=== PATIENT | male | born 1950 | race Caucasian/White ===

== ENCOUNTER → 2017-09-04 | Outpatient (CLI) | payer MEDICARE, OTHER ==
[~2017-09-04] MED LIST: AMI25 PO; ASPI-1441 PO; AUG500 PO; DOCU-202 PO; FISH OIL1 CAP PO; GLUC-135 PO; MULT1CAP41 PO; NIT4 SL; [UNRECOGNIZED DRUG - OTHER] PO
--- NOTE | 2017-09-04 14:34 | RADIOLOGY IMAGING REPORT ---
[place] [facility] [place] Wali [place] : 1950 MR: [id number] V: [id number] EXAM DATE: ORDERING PHYSICIAN: SERVANDO LOWE TECHNOLOGIST: Location: [facility] Patient: Wali Martinez : 1950 Visit/Account:[id number] Date of Sevice: 09/04/2017 MRI Brain without IV contrast Indication: Cognitive decline. Forgetfulness. Comparison: None available Technique: Sagittal T1-weighted, axial FLAIR, T2-weighted T1-weighted, gradient echo, coronal T2-weig hted, axial diffusion weighted and ADC map images were obtained through the brain. IV contrast was n ot administered. Findings: No evidence of mass, mass effect, or midline shift. No acute intracranial hemorrhage or acute territorial infarction. Unremarkable appearance of the corpus callosum. Normal posterior pituitary bright spot noted. No restricted diffusion on the diffusion-weighted images. Prominent multifocal periventricular deep white matter hyperintensities within the saucedo radiata and centrum semiovale seen related to chronic small vessel ischemic changes versus underlying vasculitis or chronic migraines. A demyelinating process is considered less likely with this distribution. Normal flow voids cerebral vasculature. There are no air-fluid levels identified. Nonspecific mild patchy opacification visualized right mas toid air cells. There are also mucous retention cysts of the visualized bilateral maxillary sinuses slightly greater on the right than the left as well as near circumferential mucosal thickening visual ized bilateral maxillary sinuses. The ethmoid air cells appear patent. Bilateral globes are intact. IMPRESSION: 1. Prominent periventricular deep white matter chronic small vessel ischemic changes suggested versu s chronic migraines or underlying vasculitis. 2. No acute intracranial abnormality. Report Dictated By: Marlo Lewis MD at 09/04/2017 2:27 PM Report E-Signed By: Marlo Lewis MD at 09/04/2017 2:31 PM WSN:[id number]
== END ==
LOC: MRI 11:09
PROVIDERS: ATTEND Psychiatry & Neurology Neurology
DX: R90.82 White matter disease, unspecified (principal); I67.82 Cerebral ischemia
CPT/HCPCS: 70551

== ENCOUNTER → 2018-02-17 | Outpatient (CLI) | payer MEDICARE, OTHER ==
--- NOTE | 2018-02-17 16:05 | RADIOLOGY IMAGING REPORT ---
FACILITY: PATIENT NAME: Wali Martinez : 1950 MR: [id number] V: [id number] EXAM DATE: ORDERING PHYSICIAN: CARLA SOTO TECHNOLOGIST: [place] [facility] [place]i [place] : 1950 Visit/Account:[id number] Date of Sevice: 02/17/2018 SOFT TISSUE HEAD NECK HISTORY: Two palpable lumps on left side of neck COMPARISON: None. FINDINGS: Thyroid : Right - Negative. Left - Negative. Largest cervical nodes: Right - none identified Left - the palpable area corresponds to submandibular area, anterior zone II. There is a well- circumscribed benign-appearing lymph node measuring 6 x 8 x 3 mm. There is also a small cyst in this area that measures 5 x 4 x 3 mm. Small subcentimeter benign lymph nodes are noted within the remainder of the cervical chains. IMPRESSION: In the region of patient's palpable mass, there is a small subcentimeter benign lymph node and a smal l subcentimeter cyst. Report Dictated By: Reji Huerta at 02/17/2018 3:51 PM Report E-Signed By: Reji Huerta at 02/17/2018 4:01 PM WSN:[email or web address]
== END ==
LOC: US 07:28
PROVIDERS: ATTEND Nurse Practitioner Family
DX: R59.0 Localized enlarged lymph nodes (principal); R22.1 Localized swelling, mass and lump, neck
CPT/HCPCS: 76536

== ENCOUNTER 2018-05-28 02:44 | Day surgery (SDC) | payer MEDICARE, OTHER ==
[2018-05-28] VITALS (13 sets, daily range): BP systolic 96–138; BP diastolic 63–91
[~2018-05-28] VITALS: Ht 172.7 cm; Wt 72.6 kg
[~2018-05-28 02:44] MED LIST changes: +AMIT-108 PO; +ASCO-182 PO; +ASPI81TA94 PO; +CHOL100058 PO; +LEVO75TA73 PO; +MULT1TAB64 PO; +OMEG-23 PO; +TURM1POW2 MC
[2018-05-28] MEDS ORDERED: NORMOSOL R SOLN(*) 1000 ML BAG 1,000 ML IV PRN (06:45)
[2018-05-28] MEDS ORDERED: ACETAMINOPHEN 500 MG TAB PO ONE (06:45)
[2018-05-28] MEDS ORDERED: ceFAZolin(*) 2GM/D5W 50ML 50 ML IVPB ONE (06:45)
[2018-05-28] MEDS ORDERED: LIDOCAINE/SOD BICARB 8.4% SYR ID ONE (06:45)
[2018-05-28] MEDS ORDERED: MIDAZOLAM 2 MG/2 ML VIAL IVP PRN (06:45)
[2018-05-28] MEDS ORDERED: FAMOTIDINE 20 MG/50 ML PREMIX IVPB ONE (06:45)
[2018-05-28] MEDS ORDERED: FAMOTIDINE 20 MG TAB PO ONE (08:15)
[2018-05-28] MEDS ORDERED: ROPIVACAINE 0.5% 20 ML VIAL ONE (08:20)
[2018-05-28] MEDS ORDERED: ROCURONIUM BROM 10 MG/ML 10 ML ONE ×2 (09:12→09:13)
[2018-05-28] MEDS ORDERED: DEXAMETHASONE SOD PHOS 10MG/ML ONE (09:12)
[2018-05-28] MEDS ORDERED: ONDANSETRON 4 MG/2 ML VIAL ONE (09:12)
[2018-05-28] MEDS ORDERED: PROPOFOL EMUL(*) 10MG/ML 20 ML 20 ML ONE (09:12)
[2018-05-28] MEDS ORDERED: LIDOCAINE MPF 1% 5 ML VIAL ONE (09:12)
[2018-05-28] MEDS ORDERED: fentaNYL CITR 100 MCG/2 ML AMP ONE ×2 (09:13→12:38)
[2018-05-28] MEDS ORDERED: KETAMINE HCL-NS 50 MG/5 ML SYR ONE (09:16)
[2018-05-28] MEDS ORDERED: DOCU-416 PO (12:48)
[2018-05-28] MEDS ORDERED: OXYC-854 PO (12:48)
--- NOTE | 2018-05-28 12:51 | Short(Outpt) Discharge Summary ---
Discharge Summary Reason for Hosp/Final Diag: (1) Bilateral inguinal hernia (BIH) Status: Resolved Hospital Course & Plan: Robotic BIH repair completed without problems. Departure Discharge to: Home, Self Care Discharge Instructions Home Meds Active Scripts Docusate Sodium (COLACE) 100 Mg Capsule, 1 CAP PO BID, #30 CAPSULE 0 Refills Prov:JAZMIN PEDRO MD 05/28/18 Oxycodone Hcl/Acet 5/325 Mg (ENDOCET 5-325 TABLET) 1 Each Tablet, 1 TAB PO Q4H PRN for PAIN, #20 TAB 0 Refills Prov:JAZMIN PEDRO MD 05/28/18 Reported Medications Multivitamin (MULTI VITAMIN DAILY) 1 Each Tablet, 1 TAB PO QDAY 04/14/18 Aspirin (ASPIRIN) 81 Mg Tab.chew, 81 MG PO QDAY, TAB.CHEW 04/14/18 Reva-3 Fatty Acids/Fish Oil (FISH OIL 1,000 MG SOFTGEL) Unknown Strength Capsule, PO, CAPSULE 04/14/18 Ascorbic Acid (VITAMIN C) Unknown Strength Tablet, PO, TAB 04/14/18 Cholecalciferol (Vitamin D3) (VITAMIN D) Unknown Strength Capsule, PO, CAPSULE 04/14/18 Turmeric (TURMERIC) Unknown Strength Powder, MC 04/14/18 Levothyroxine Sodium (LEVOTHYROXINE SODIUM) 75 Mcg Tablet, 1 TAB PO QDAY, TAB 04/03/18 Amitriptyline Hcl (AMITRIPTYLINE HCL) 50 Mg Tablet, 1 TAB PO QHS, #5 TAB 04/03/18 Follow up Referrals: General Surgery - 06/09/18 @ Surgery, General with JAZMIN PEDRO MD You have a follow up appointment scheduled with Dr. Pedro on 06/09/18, at 4:15pm. Diet: Regular Activity: No Heavy Lifting Special Instructions: You may remove the white surgical dressings on 05/30/18, then you can shower. After showering, leave the incisions open to air but leave the steristrips in place until they fall off on their own. Do not immerse the incisions for 2 weeks. Avoid any activity that involves straining or lifting more than 10 pounds for 2 weeks after surgery. Problem Qualifiers (1) Bilateral inguinal hernia (BIH): Obstruction and gangrene presence: without obstruction or gangrene Recurrence: non-recurrent Qualified Codes: K40.20 - Bilateral inguinal hernia, without obstruction or gangrene, not specified as recurrent JAZMIN PEDRO MD May 28, 2018 12:51
--- NOTE | 2018-05-28 12:58 | Post Operative Progress Note ---
Post Operative Progress Note Date: May 28, 2018 Time: 12:51 Surgeon: Lucius Dictation number: [id number] Anesthesia: GETA by Dr. Canada Pre-Op Diagnosis: RI Post-Op Diagnosis: BIH Findings: Bilateral indirect inguinal hernias Procedure(s): Robotic BIH repair Adhesiolysis Specimen Removed:(May be N/A): None Complications: None Fluids: See anesthesia record Estimated Blood Loss: Minimal Date OP Note Dictated: May 28, 2018 Time OP Note Dictated: 12:52 JAZMIN PEDRO MD May 28, 2018 12:58
--- NOTE | 2018-05-28 13:39 | OPERATIVE REPORT 1 ---
EVENT DATE: May 28, 2018 SURGEON: Jona Kan MD ANESTHESIOLOGIST: Jose Canada MD ANESTHESIA: General endotracheal PREOPERATIVE DIAGNOSIS Right inguinal hernia. POSTOPERATIVE DIAGNOSIS Bilateral inguinal hernias, indirect on both sides. PROCEDURE PERFORMED 1. Robotic bilateral inguinal hernia repair. 2. Robotic adhesiolysis. COMPLICATIONS None. CONDITION Stable. ESTIMATED BLOOD LOSS Minimal. FINDINGS This patient had bilateral indirect inguinal hernias. INDICATIONS This is a 68-year-old gentleman who presented to my office with a right groin bulge. On exam, this was consistent with an inguinal hernia. The other groin was unremarkable. I discussed hernias with him and their treatment including robotic hernia repair and he elected to proceed with robotic inguinal hernia repair. DESCRIPTION OF PROCEDURE The patient was brought to the operating room and placed supine on the operating table. General endotracheal anesthesia was administered. His abdomen was prepped and draped in sterile fashion. A timeout was completed and I injected the left subcostal skin with 0.5% Ropivacaine plain and made an 8 mm transverse incision in the left subcostal skin several centimeters inferior to the costal margin and just lateral to the mid clavicular line. I used a Veress needle and insufflated the abdomen to a pressure of 15 mmHg and then inserted a robotic 8 mm optical port in through this wound with the camera in focus without any problems. Next, I placed an 8 mm robotic port in the right subcostal skin and then one in the epigastric midline. Inspection of the groins revealed the expected right inguinal hernia which was an indirect hernia as well as some adhesions of omentum to the abdominal wall where the previous appendectomy had been performed many years ago. Also apparent, was another indirect inguinal hernia on the left groin. I popped in a bilateral ProGrip mesh as well as 2 V- Loc sutures into the abdomen and then brought the robot in, docked it, and targeted it, inserted the instruments and the scrubbed out and went to the console. I then took down the omentum from the anterior abdominal wall which was done rather easily, no bowel was involved. I then divided the peritoneum from just medial to the right anterior superior iliac spine all the way across the midline, all the way to the left anterior superior iliac spine. I then dissected through the preperitoneal space and there were some thin areas just to the patient's right of midline, probably related to his previous robotic prostatectomy, and so I actually went into the posterior rectus sheath and stripped this down as well to keep the integrity of the tissue good to cover the mesh. I dissected all the way down along the iliopubic tracts medially to the pubic bone and Harvinder's ligament. This dissection in the midline was somewhat difficult made so by the adhesions from the previous prostatectomy, but I was able to do this without any injury to the bladder and I was able to identify all of the landmarks. I started with the left hernia and reduced it from the inguinal canal and it from the cord structures relatively intact in terms of the sac, but down past where the vessels and vas splay there was a peritoneal defect where I could see in the peritoneal cavity through this defect on that side. There was a cord lipoma that I reduced out of the inguinal canal on the left as well and this from the cord structures. The vas and gonadal vessels were easily identified and preserved. I then moved to the right side and did the same procedure and the much bigger hernia sac and it went much further down into the inguinal canal, but I was able to find the end of it and then separate it from the cord structures and dissected it free well past where all of the cord structures splayed. After this was completed, I put the ProGrip mesh on each side and unfurled it, starting with the right side and made sure it covered the pubic tubercle as well as Harvinder's ligament and it covered the whole myopectineal orifice with several centimeters with overlap on all sides. Then I deployed the left sided mesh in exactly the same way so they laid nice and symmetrically and flat with no wrinkles. I then closed the peritoneal defect with a running V-Loc absorbable suture and then took another V-Loc suture and closed the defect in the patient's left groin, peritoneum so that there was no exposed mesh. The repair looked great when this was all done and so all of the sutures were removed from the abdomen as well as the instruments and then the robot was undocked. The patient's abdomen desufflated and the ports were removed and I closed the skin with 4-0 Monocryl subcuticular sutures. The skin was cleaned, dried, and Steri-Strips were applied, followed by sterile surgical dressings on each incision. The patient was then awakened and extubated in the operating room and transported to the recovery room in stable medication condition having tolerated the procedure without any apparent problems. MTDD
[2018-05-28] MEDS ORDERED: PREGABALIN 150 MG CAPSULE PO ONE (16:45)
== END 2018-05-28 13:22 | disposition home or self-care (01) ==
LOC: OR 02:44
PROVIDERS: ATTEND Surgery
DX: K40.20 Bilateral inguinal hernia, without obstruction or gangrene, not specified as recurrent (principal)
CPT/HCPCS: 49650; A9270; C1781; J1100; J2001; J2405; J2704; J2795; J3010; J3490; S2900; J0690